=== PATIENT | male | born 1980 | race African-American/Black ===

== ENCOUNTER 2017-09-18 14:59 | Emergency (ER) | payer MEDICAID ==
[~2017-09-18] VITALS: Ht 185.4 cm; Wt 63.5 kg
[2017-09-18 15:35] VITALS: BP 134/89
[2017-09-18] MEDS ORDERED: KETOROLAC TROMETH 60MG/2ML VIAL IM ONE (16:00)
== END 2017-09-18 16:48 | disposition home or self-care (01) ==
LOC: ER 14:59
DX: G89.29 Other chronic pain (principal); M25.561 Pain in right knee; M25.562 Pain in left knee; M25.571 Pain in right ankle and joints of right foot; M25.572 Pain in left ankle and joints of left foot; F17.210 Nicotine dependence, cigarettes, uncomplicated; Z88.0 Allergy status to penicillin
CPT/HCPCS: 73562; 96372; 99284; J1885